=== PATIENT | male | born 1935 | race Caucasian/White ===

== ENCOUNTER → 2017-09-18 07:40 | Outpatient (CLI) | payer MEDICARE ==
[2015-11-01 10:05] VITALS: BMI 32.2
[~2017-09-18 07:40] MED LIST: ACETAMINOPHEN325 MG PO; BAYER CHEWABLE81 MG PO; CELEXA20 MG PO; COLACE100 MG PO; COREG6.25 MG; FENOFIBRATE54 MG PO; FLINTSTONE1 TAB.CHEW PO; GEMFIBROZIL600 MG PO; GLIMEPIRIDE4 MG PO; GLUCOPHAGE1000 MG PO; HYDROCHLOROTHIA25 MG PO; HYTRIN10 MG PO; K-DUR20 MEQ PO; KLOR-CON 1010 MEQ PO; LASIX INJ40 MG/4 ML PO; LASIX40 MG PO; LOPRESSOR25 MG PO; LUNESTA1 MG PO; MULTIPLE VITAMI1 TA1 PO; NORVASC2.5 MG PO; PRAVACHOL40 MG PO; PROAIR HFA8.5 GM INH; PROTONIX40 MG PO; SALINE NASAL SP45 ML NASAL; SENOKOT-S TABLE1 TAB PO; SYMBICORT 16010.2 GM INH; TOPROL XL25 MG PO; XANAX0.25 MG PO; XOPENEX 0.0.63 MG/3 UPD; ZESTRIL40 MG PO
== END | disposition home or self-care (01) ==
LOC: D.RT 07:40
DX: J44.9 Chronic obstructive pulmonary disease, unspecified (principal)

== ENCOUNTER 2019-02-11 06:24 | Outpatient (CLI) | payer MEDICARE ==
[~2019-02-11] VITALS: Ht 170.2 cm; Wt 80.9 kg
[2019-02-11 07:49] VITALS: BP 140/63; Ht 170.2 cm; Wt 80.9 kg
== END 2019-02-11 10:20 | disposition home or self-care (01) ==
LOC: D.OPS 06:24
PROVIDERS: ATTEND Internal Medicine Cardiovascular Disease
DX: Z95.2 Presence of prosthetic heart valve (principal)

== ENCOUNTER → 2019-04-12 08:47 | Outpatient (CLI) | payer MEDICARE ==
[2019-02-11 07:49] VITALS: BMI 27.9
--- NOTE | ~2019-04-12 | EC ---
PATIENT:CHASITY RUBIO JR DATE OF SERVICE: 04/12/19 SEX: M MEDICAL RECORD: [id number] DATE OF : 31 [facility] AGE OF PATIENT: 83 ADMISSION DATE: 04/12/19 REFERRING PHYSICIAN: INTERPRETING PHYSICIAN: JUANITA LOGAN MD ECHOCARDIOGRAM REPORT ECHO CHARGES 4 ECHO COMPLETE Date: 04/12/19 CLINICAL DIAGNOSIS: SOB HX CAD/CABG/HTN/STENTS ECHOCARDIOGRAPHIC MEASUREMENTS (adult normal given) AC root (d.<3.7cm) 3.7 cm LV Septum d (<1.2 cm> 1.3 cm Valve Excursion 1.7 cm LV Septum (systole) 1.4 cm Left Atria (s.<4.0cm> 4.0 cm LVPW d(<1.2cm) 1.4 cm RV (d.<2.3cm) 3.8 cm LVPW (sytole) 1.8 cm LV diastole(<5.6CM) 5.5 cm MV E-F(>70mm/sec) cm LV systole 3.7 cm LVOT Diameter 1.5 cm MV exc.(>10mm) 2.1 cm Est.ejection fraction (50-75%) % DOPPLER: LVIT cm/sec A 89.0 cm/sec E 79.0 cm/sec LA cm/sec RVSP 41 mmHg LVOT 120 cm/sec AOP1/2T m/s Asc. Ao 185 cm/sec RVOT 90 cm/sec RA cm/sec PA 110 cm/sec AV Gradient Peak 13.69mmHg AV Mean 7.40 mmHg AV Area 2.6 cm MV Gradient Peak 3.24 mmHg MV Mean 1.50 mmHg MV Area cm COMMENTS: Spot Machine Operator: Nita ALONSO Dental Professional: 1 Dr. Logan TAPE# PACS Pericardial Effusion N DATE OF SERVICE: 04/12/2019 ECHOCARDIOGRAM DATE OF SERVICE: 04/12/2019 FINDINGS: 1. Left ventricular chamber size is within normal limits. Left ventricular systolic function is normal at 55%. 2. Left atrium is upper limits of normal at 4.0 cm. Right atrium and right ECHOCARDIOGRAM REPORT [id number] CHASITY RUBIO JR ventricular chamber sizes are as well upper limits of normal. 3. Valvular structures have normal structure and motion. 4. Doppler interrogation reveals mild mitral regurgitation, mild tricuspid regurgitation, no other valvular insufficiency or stenosis. Pulmonary systolic pressure is normal estimated at 41 mmHg. 5. No evidence of pericardial effusion or left ventricular thrombus. TRANSINT:[id number] Voice Confirmation ID: [id number] DOCUMENT ID: [id number] JUANITA LOGAN MD CC: [id number] DICTATION DATE: 04/13/19 1111 VANSTONE MACHINE OPERATOR: 04/13/19 1206 DEP CLI 04/12/19 [facility] [address] [place] [id number]
--- NOTE | ~2019-04-12 | ST ---
PATIENT:CHASITY RUBIO JR MEDICAL RECORD: [id number] SEX: M LOCATION:[facility] ORDER #: ADMISSION DATE: 04/12/19 AGE OF PATIENT: 83 REFERRING PHYSICIAN: INTERPRETING PHYSICIAN: JUANITA TIRADO MD DATE OF SERVICE: 04/12/2019 PROCEDURE: Nuclear stress test. INDICATIONS: Angina, shortness of breath, coronary artery disease. The patient was exercised on standard Lexiscan protocol with 29 mCi of sestamibi injected at peak stress, 8 mCi used previously for rest images. FINDINGS: Gated SPECT reveals preserved ejection fraction at 59% with good wall motioning and thickening and brightening throughout all segments. SPECT imaging: Cardiolite was used as myocardial perfusion agent. There are reversible changes inferiorly, apically, and laterally. This includes basal, mid, apical, inferior segments, apex itself, apical lateral, mid lateral, basal lateral segments. The degree of reversibility is mild to moderate. The amount of myocardium involved is large. OVERALL IMPRESSION: This is an abnormal nuclear stress test and high risk due to the large amount of myocardium involved with reversible ischemia inferiorly, apically, and laterally suggestive of hemodynamically significant coronary artery disease, possibly multivessel disease. We will proceed with coronary angiography as a followup study. TRANSINT:[id number] Voice Confirmation ID: [id number] DOCUMENT ID: [id number] JUANITA TIRADO MD CC: NORMA BURTON MD [id number] DICTATION DATE: 04/13/19 1142 RAILWAY EQUIPMENT OPERATOR: 04/14/19 0023 DEP CLI 04/12/19 [place] [id number] [place] [id number]
== END | disposition home or self-care (01) ==
LOC: D.HCCARDIO 08:47
PROVIDERS: ATTEND Internal Medicine Interventional Cardiology
DX: R06.02 Shortness of breath (principal); I25.10 Atherosclerotic heart disease of native coronary artery without angina pectoris

== ENCOUNTER 2019-05-17 07:33 | Outpatient (CLI) | payer MEDICARE ==
[~2019-05-17] VITALS: Ht 170.2 cm; Wt 79.5 kg
--- NOTE | ~2019-05-17 | HEMODYNAMI ---
PATIENT:CHASITY RUBIO JR MEDICAL RECORD: [id number] : 31 LOCATION:D.CAT ADMISSION DATE: 05/17/19 Generatedon:05/17/201910:31 Patient name: CHASITY RUBIO Patient #: [id number] SSN: : 1935 Date of study: 05/17/2019 Page: Of Hemodynamic Procedure Report Patient Data Patient Demographics Procedure consent was obtained First Name: CHASITY Gender: Male Last Name: JOANNE Suffix: [facility] Initial: Manedep : 1935 Patient #: [id number] Age: 83 year(s) Race: Additional ID: [id number] Contact details [address]: [address] [place] [address] rd State: [place] City: [place] Zip code: [address] Past Medical History History of disease Date Diagnosis Comments Valvular heart disease Hypertension Allergies Allergen Reaction Date Comments Reported Penicillins 09/22/2015 Other allergy 09/22/2015 NAPROSYN Other allergy 05/17/2019 CHINTAN KIMBLE Admission Admission Data Admission Date: 05/17/2019 Admission Time: 7:33 Height (in.): 67 BSA: 1.92 (m2) Height (cm.): 170.18 BMI: 27.72 (kg/m2) Weight (lbs.): 177 Weight (kg.): 80.29 Lab Results Lab Result Date: 05/17/2019 Lab Result Time: 0:00 Biochemistry Name Units Result Min Max BUN mg/dl 24 --(----)-* 7 18 Creatinine mg/dl 1.4 --(----)*- 0.6 1.3 CBC Name Units Result Min Max Hematocrit % 40.8 -*(----)-- 42 54 Hemoglobin g/dl 14 --(*---)-- 13.5 17.5 Procedure Procedure Types Cath Procedure Diagnostic Procedure LHC LHC w/Coronaries w/Grafts Sedation Charges Moderate Sedation up to 15 minutes PCI Procedure Coronary Stent Coronary Stent Initial Coronary Stent Additional Procedure Description Procedure Date Procedure Date: 05/17/2019 Procedure Start Time: 10:03 Procedure End Time: 10:29 Procedure Staff Name Function Richard Logan MD Performing Physician Sandie Wick RT Monitor Ortiz Fitzpatrick RT Scrub Jenelle Cesar RN Nurse Joe Avendano RN Conductor Orchestra Procedure Data Cath Procedure Fluoroscopy Diagnostic fluoroscopy Total fluoroscopy Time: 6.4 time: 6.4 min min Diagnostic fluoroscopy Total fluoroscopy dose: dose: 1208 mGy 1208 mGy Contrast Material Contrast Material Type Amount (ml) Isovue 300 0 Entry Location Entry Primary Successful Side Size Upsize Upsize Entry Closure Succes sful Closure Location (Fr) 1 (Fr) 2 (Fr) Remarks Device Remarks Femoral Right 5 Fr 6 Fr Exoseal artery Short Estimated blood loss: 10 ml Diagnostic catheters Device Type Used For End Catheter Placement MULTIPACK JL 4.0 5Fr Procedure catheter MULTIPACK 3DRC 5Fr Procedure catheter DIAGNOSTIC AR2 MOD 5 Fr Procedure catheter ([id number]) Procedure Complications No complications Procedure Medications Medication Administration Route Dosage 0.9% NaCl I.V. 100 ml/hr Oxygen etCO2 Nasal cannula 2 l/min Lidocaine 2% added to field 20 Heparin Flush Bag added to field 2 bags (1000units/500ml NS) Versed I.V. 2 mg Fentanyl I.V. 50 mcg Heparin Bolus I.V. 4000 units Integrilin (Bolus I.V. 7.3 ml 2mg/ml) Plavix P.O. 600 mg Fentanyl I.V. 50 mcg Hemodynamics Rest BSA: 1.92 (m2) O2 Consumption: Estimated: 215.35 (ml/min) O2 Consumption indexed : Estimated:112.16 (ml/min/m) Heart Rate: 66 (bpm) Snapshots Pre Cath Intra NCS Post Cath Vital Signs Time Heart Resp SPO2 etCO2 NIBP (mmHg) Rhythm Pain Sedation Rate (ipm) (%) (mmHg) Status Level (bpm) 9:48:05 68 18 99 32.8 158/73(123) NSR 0 (11) 10(A) , No pain 9:52:25 61 21 98 32.8 138/66(113) NSR 0 (11) 10(A) , No pain 9:56:47 59 13 96 33.6 120/59(90) SB 0 (11) 10(A) , No pain 10:01:09 58 12 96 32.7 113/55(86) SB 0 (11) 10(A) , No pain 10:05:23 57 16 97 32.9 114/59(93) SB 0 (11) 10(A) , No pain 10:09:43 57 11 98 28.3 103/55(70) SB 0 (11) 9(A) , No pain 10:13:57 55 16 98 30.6 114/56(91) SB 0 (11) 9(A) , No pain 10:18:13 54 11 97 30.6 108/51(84) SB 0 (11) 9(A) , No pain 10:22:29 60 11 99 36.8 116/57(88) NSR 0 (11) 10(A) , No pain 10:26:47 64 14 100 23.9 131/62(99) NSR 0 (11) 10(A) , No pain Medications Time Medication Route Dose Verified Delivered Reason Notes Effectiveness by by 9:48:04 0.9% NaCl I.V. 100 Richard Jenelle used for ml/hr Desmond Cesar manager car 9:48:11 Oxygen etCO2 2 Richard Jenelle used for Nasal l/min Desmond Cesar procedure cannula RN 9:48:18 Lidocaine 2% added 20ml Richard Richard for local to vial Desmond Logan MD anesthetic field 9:48:23 Heparin Flush added 2 Richard Richard used for Bag to bags Desmond Logan MD procedure (1000units/500ml field NS) 10:02:55 Versed I.V. 2 mg Richard Jenelle for sedation Desmond Cesar RN 10:03:01 Fentanyl I.V. 50 Richard Jenelle for sedation mcg Desmond Cesar RN 10:08:59 Fentanyl I.V. 50 Richard Jenelle for sedation mcg Desmond Cesar RN 10:17:56 Heparin Bolus I.V. 4000 Richard Jenelle for verif ied units Desmond Cesar anticoagulation with Dr. KAREEM Logan 10:18:17 Integrilin I.V. 7.3 Richard Jenelle for waste d (Bolus 2mg/ml) ml Desmond Cesar antiplatelet 2.7mL RN therapy 10:23:25 Plavix P.O. 600 Richard Marinellisarah Cesar antiplatelet RN therapy Procedure Log Time Note 9:30:01 Signed procedure consent form obtained from patient. 9:30:02 Diagnostic Cath status Urgent 9:30:03 Time tracking: Regular hours (M-F 7:00 - 5:00) 9:30:06 Plan of Care:Hemodynamics will remain stable., Cardiac rhythm will remain stable., Comfort level will be maintained., Respiratory function will remain adequate., Patient/ family verbilizes understanding of procedure., Procedure tolerated without complication., Recovers from procedure without complications.. 9:31:03 Patient Height : 67 inches 9:31:06 Patient Weight : 177 lbs 9:31:27 Patient allergic to Other allergyNAPROSYN, PCN 9:34:15 Lab Result : BUN 24 mg/dl 9:34:15 Lab Result : Hemoglobin 14 g/dl 9:34:15 Lab Result : Creatinine 1.4 mg/dl 9:34:15 Lab Result : Hematocrit 40.8 % 9:34:26 Joe Avendano RN sent for patient. Start room use. 9:39:27 Patient received from Pre/Post Procedure Room to CCL 1 Alert and oriented. Tansferred to table in Supine position. 9:39:28 Warm blankets applied, and sergio hugger turned on for patient comfort. 9:39:29 Correct patient and procedure confirmed by team. 9:39:29 ECG and BP/O2 sat monitors applied to patient. 9:46:44 Vital chart was started 9:46:48 Rhythm: sinus rhythm 9:46:49 Full Disclosure recording started 9:46:59 H&P Date Dictated: 05/11/2019 Within 30 days and on chart., H&P Addendum completed by physician on day of procedure. (MUST COMPLETE FOR ALL OUTPATIENTS). 9:46:59 Pre-procedure instructions explained to patient. 9:47:00 Pre-op teaching completed and patient verbalized understanding. 9:47:01 Family in patients room. 9:47:02 Patient NPO since Midnight. 9:47:04 Is patient on blood thinner?No 9:47:06 Patient diabetic? No. 9:47:09 Previous problem with sedation/anesthesia? No ? 9:47:09 Snore? Yes 9:47:10 Sleep apnea? No 9:47:11 Deviated septum? No 9:47:12 Opens mouth fully? Yes 9:47:12 Sticks out tongue? Yes 9:47:14 Airway obstruction? No ? 9:47:18 Dentures? Yes PARTIAL IN 9:47:22 Patient pain scale 0/10 ?. 9:47:26 Pre procedure: right dorsailis pedis pulse 1+ Palpable, but thready & weak; easily obliterated 9:47:31 IV patent on arrival in left hand with 0.9% NaCl at O. 9:47:34 Lab results completed and on chart. 9:47:37 Right groin area was prepped with chlora-prep and draped in sterile fashion 9:47:38 Alarms reviewed by R. N. 9:47:38 Sharps counted by scrub and verified by R.N. 9:47:41 Use device set Femoral Dx 9:47:42 ACIST Syringe (10386) opened to sterile field. 9:47:42 Bag Decanter (2002S) opened to sterile field. 9:47:43 ACIST Hand Control (36851) opened to sterile field. 9:47:44 ACIST Manifold (19905) opened to sterile field. 9:47:44 Tegaderm 4 x 4 (1626W) opened to sterile field. 9:47:45 Medline Cath Pack ([id number]) opened to sterile field. 9:47:45 DIAGNOSTIC WIRE .035 260cm J wire (117851) opened to sterile field. 9:47:47 DIAGNOSTIC Multipack 5Fr catheter set (UT6232) opened to sterile field. 9:47:48 SHEATH 5FR Otwell (IFS039) opened to sterile field. 9:48:04 0.9% NaCl 100 ml/hr I.V. was administered by Jenelle Cesar RN; used for procedure; 9:48:11 Oxygen 2 l/min etCO2 Nasal cannula was administered by Jenelle Cesar RN; used for procedure; 9:48:18 Lidocaine 2% 20ml vial added to field was administered by Richard Logan MD; for local anesthetic; 9:48:23 Heparin Flush Bag (1000units/500ml NS) 2 bags added to field was administered by Richard Logan MD; used for procedure; 9:49:12 Baseline sample Acquired. 9:58:38 Zero performed for pressure channel P1 9:59:05 Zero performed for pressure channel P1 10:02:31 --------ALL STOP TIME OUT------ 10:02:32 Final Timeout: patient, procedure, and site verified with staff and physician. All members of the team are in agreement. 10:02:33 Right groin site verified by team. 10:02:35 Maximum allowable Isovue 300 dose 300ml. Physician notified. (300ml for normal creatinines. For patients with creatinine of 1.7 or higher multiply weight(kg) x 5 divided by creatinine.) 10:02:39 Fire Safety Assessment: A--An alcohol-based skin anteseptic being used preoperatively., C--Open oxygen or nitrous oxide is being used., D--An ESU, laser, or fiber-optic light is being used. 10:02:41 Physical assessment completed. ASA score P 2 - A patient with mild systemic disease as per Richard Logan MD. 10:02:44 Sedation plan: IV Moderate Sedation Medication:Versed, Fentanyl 10:02:55 Versed 2 mg I.V. was administered by Jenelle Cesar RN; for sedation; 10:03:01 Fentanyl 50 mcg I.V. was administered by Jenelle Cesar RN; for sedation; 10:03:06 Procedure started. 10:03:30 Local anesthetic to right femoral artery with Lidocaine 2% by Richard Logan MD.INITIAL ACCESS ONLY 10:05:10 A 5 Fr sheath was inserted into the Right Femoral artery 10:07:53 LV gram done using ANDREA 10:08:01 Injector settings: Ml/sec: 10, Volume: 20, 10:08:14 EF : 50 % 10:08:16 Catheter removed. 10:08:48 A MULTIPACK JL 4.0 5Fr catheter was advanced over the wire and used for Procedure. 10:08:59 Fentanyl 50 mcg I.V. was administered by Jenelle Cesar RN; for sedation; 10:09:32 LCA angiography performed. 10:09:33 Catheter removed. 10:09:41 A MULTIPACK 3DRC 5Fr catheter was advanced over the wire and used for Procedure. 10:10:36 SVG to LAD angiography performed. 10:11:25 RCA angiography performed. 10:12:10 Catheter removed. 10:12:53 A DIAGNOSTIC AR2 MOD 5 Fr catheter ([id number]) was advanced over the wire and used for Procedure. 10:12:58 SVG to OM angiography performed. 10:13:57 SVG to RCA angiography performed. 10:14:06 Catheter removed. 10:14:29 SHEATH 6FR Otwell (AVN474) opened to sterile field. 10:14:30 INFLATOR Merit BasixCompak (GF9117) opened to sterile field. 10:14:30 CHOICE PT Extra Support 182cm wire ([id number]) opened to sterile field. 10:14:49 Sheath upsized to a 6 Fr Short. 10:15:05 GUIDE 6FR AR 2.0 catheter (GE5LG12) opened to sterile field. 10:16:04 6 Fr AR 2 guide catheter was inserted over the wire 10:17:56 Heparin Bolus 4000 units I.V. was administered by Jenelle Cesar RN; for anticoagulation; verified with Dr. Logan 10:18:17 Integrilin (Bolus 2mg/ml) 7.3 ml I.V. was administered by Jenelle Cesar RN; for antiplatelet therapy; wasted 2.7mL 10:18:39 CHOICE ES 182 wire advanced. 10:18:40 Wire advanced across lesion. 10:20:17 Place stent Inflation Number: 1 A MARK RX 3.0 x 12 stent ([id number]) was prepped and advanced across the 1st RPL 90. The stent was deployed at 15 KATHY for 0:00 (min:sec) 0. 10:20:23 Stent catheter was removed intact over wire. 10:21:43 Place stent Inflation Number: 1 A MARK RX 3.0 x 15 stent ([id number]) was prepped and advanced across the Mid RCA 90. The stent was deployed at 15 KATHY for 0:00 (min:sec) 0. 10:22:05 Stent catheter was removed intact over wire. 10:23:25 Plavix 600 mg P.O. was administered by Jenelle Cesar RN; for antiplatelet therapy; 10:23:44 Place stent Inflation Number: 2 A MARK RX 2.5 x 15 stent ([id number]) was prepped and advanced across the Mid RCA 90. The stent was deployed at 13 KATHY for 0:00 (min:sec) 0. 10:24:03 Stent catheter was removed intact over wire. 10:24:03 Wire removed. 10:24:04 Guide catheter removed. 10:24:06 EXOSEAL 6Fr (EX600) opened to sterile field. 10::42 Sheath removed intact; hemostasis achieved with Exoseal to the Right Femoral artery. 10::45 Procedure ended.(Physican Out) 10:25:24 Fluoroscopy time 06.40 minutes. 10::31 Fluoroscopy dose: 1208 mGy 10:: Flurop Dose total: 1208 10::36 Contrast amount:Isovue 300 0ml. 10::38 Sharps counted by scrub and verified by R.N. 10::42 Post-op/insertion site Right Femoral artery dressed using a 4 x 4 and Tegaderm. 10::45 Post-procedure physical assessment completed. ASA score P 2 - A patient with mild systemic disease as per Richard Logan MD. 10:25:47 Post procedure rhythm: sinus rhythm 10::49 Estimated blood loss: 10 ml 10::51 Post procedure instruction explained to patient.Patient verbalizes understanding. 10::51 Patient needs reinforcement of post procedure teaching. 10:27:02 Procedure type changed to Cath procedure, Diagnostic procedure, LHC, LHC w/Coronaries w/Grafts, Sedation Charges, Moderate Sedation up to 15 minutes, PCI procedure, Coronary Stent, Coronary Stent Initial, Coronary Stent Additional 10::31 Procedure and supply charges have been captured, reviewed, submitted and are correct. 10:27:35 Procedure Complication : No complications 10:29:04 Vital chart was stopped 10::04 See physician's report for complete and final results. 10:29:06 Report given to Pre/Post Procedure Room. 10:29:09 Patient transfered to Pre/Post Procedure Room with Bed. 10:29:12 Procedure ended. 10:29:12 Full Disclosure recording stopped 10::15 End room use (Document Last) Intervention Summary Intervention Notes Time ActionType Lesion and Equipment Used Action# Pressure Duration Attributes 10:20:17 Place stent 1st RPL MARK RX 3.0 x 1 15 00:00 12 stent ([id number]) 10:21:43 Place stent Mid RCA MARK RX 3.0 x 1 15 00:00 15 stent ([id number]) 10:23:44 Place stent Mid RCA MARK RX 2.5 x 2 13 00:00 15 stent ([id number]) Device Usage Item Name Manufacture Quantity Catalog Number Hospital Part Current M inimal Lot# / Charge Number Stock Stock Serial# Code ACIST Syringe Acist 1 68439 350178 931413 091993 2 0 (35730) Medical Systems Inc Bag Decanter Microtek 1 2001S 822129 01862 622025 5 () Medical Inc. ACIST Hand Acist 1 71499 800616 974598 599318 5 Control Medical (67228) Systems Inc ACIST Manifold Acist 1 04491 105434 225631 172985 5 (96897) Medical Systems Inc Tegaderm 4 x 4 3M 1 1626W 055329 160078 564741 5 (1626W) Medline Cath Medline 1 [id number] 029225 04524 757713 5 Pack ([id number]) DIAGNOSTIC St Renzo 1 938716 831583 192308 320234 3 0 WIRE .035 260cm J wire (471587) DIAGNOSTIC Cardinal 1 UF0815 141785 71473 731104 3 0 Multipack 5Fr Health catheter set (WZ8764) SHEATH 5FR Terumo 1 LTI151 516125 643001 678993 5 Otwell (QTH336) MULTIPACK JL Cardinal 1 675572 5 4.0 5Fr Health catheter MULTIPACK 3DRC Cardinal 1 858628 5 5Fr catheter Health DIAGNOSTIC AR2 Cardinal 1 [id number] 867860 309106 062897 2 0 MOD 5 Fr Health catheter ([id number]) SHEATH 6FR Terumo 1 MCJ425 436004 262819 747210 4 0 Otwell (SGX223) INFLATOR Merit Merit 1 UA4071 885705 533183 985557 1 5 better. Medical (LW6833) CHOICE PT Roslyn 1 [id number] 668593 554318 838643 5 Extra Support Scientific 182cm wire ([id number]) GUIDE 6FR AR Medtronic 1 AT8PJ45 943322 72831 733785 1 2.0 catheter ([id number]) MARK RX 3.0 x Medtronic 1 [id number] 957741 6334287 397385 5 [id number] 12 stent ([id number]) MARK RX 3.0 x Medtronic 1 [id number] 103410 8131432 129777 5 [id number] 15 stent ([id number]) MARK RX 2.5 x Medtronic 1 [id number] 919208 7131139 341671 5 [id number] 15 stent ([id number]) EXOSEAL 6Fr Cardinal 1 EX600 070444 386437 119739 1 0 (EX600) Health Signature Audit Dexter Stage Time Signature Unsigned Intra-Procedure 05/17/2019 Sandie Wick 10:31:19 AM RT(R) Signatures Monitor : Sandie Wick Signature : RT Date : Time : [address] [address]
[2019-05-17] MEDS ORDERED: TOPROL XL25 MG PO (07:51)
[2019-05-17] MEDS ORDERED: ZYLOPRIM300 MG PO (07:55)
[2019-05-17 08:05] VITALS: BP 156/70; Ht 170.2 cm; Wt 79.5 kg
[2019-05-17 08:22] LABS: BASOPHILS 0.3 % (0-2); EOSINOPHILS 7.3 % (0-7); HEMATOCRIT 40.8 % (42.0-54.0); IMMATURE GRANULOCYTES 0.4 % (0-5); MCH 30.6 pg (26.0-34.0); MCHC 34.3 g/dL (31.0-37.0); MCV 89.1 fL (80.0-100.0); MEAN PLATELET VOLUME 10.6 fL (7.4-10.4); MONOCYTES 12.5 % (2-11); NEUTROPHILS 60.5 % (40-80); RBC 4.58 10x6/uL (4.20-6.10); WBC 7.3 10x3/uL (4.8-10.8)
[2019-05-17 08:37] LABS: PLATELET COUNT 219 10x3/uL (130-400)
[2019-05-17 09:23] LABS: ANION GAP 12.2 mmol/L (8-16); CALCIUM 9.7 mg/dL (8.5-10.1); CREATININE - SERUM 1.4 mg/dL (0.6-1.3); POTASSIUM - SERUM 4.2 mmol/L (3.5-5.1)
--- NOTE | 2019-05-17 10:52 | NUR ---
DR TIRADO HAS ROUNDED ON PT. PT DENIES ANY C/O. IS DROWSY. DRESSING CDI TO RIGHT GROIN, PEDAL PULSES PALPABLE, HOB IS FLAT. RESP WITH EASE ON O2 AT 2LPM VIA NC. AT BEDSIDE.
[2019-05-17] MEDS ORDERED: PLAVIX75 MG PO (10:56)
--- NOTE | 2019-05-17 11:08 | NUR ---
PT DENIES ANY C/O OR NEEDS AT THIS TIME, NSR, RATE 60. BP IS 125/58, PT DENIES ANY C/O CHEST PAIN. DRESSING CDI RIGHT GROIN, PEDAL PULSES 2+. HOB IS FLAT, NO FAMILY AT BEDSIDE, CALL LIGHT IN REACH.
--- NOTE | 2019-05-17 11:30 | NUR ---
SLEEPING INTERMITTENTLY, AWAKENS EASILY. DRESSING CDI TO RIGHT GROIN, PEDAL PULSES PALPABLE. VSS, RESP WITH EASE. HOB IS FLAT.
--- NOTE | 2019-05-17 12:00 | NUR ---
PT DENIES ANY C/O. SINSU RHYTHM AT 62, BP IS 121/57. RESP WITH EASE ON O2 AT 2LPM, PEDAL PULSES PALPABLE. HOB IS FLAT, CALL LIGHT IN REACH, PT VOIDED 150 CC CLEAR YELLOW URINE. AT BEDSIDE.
--- NOTE | 2019-05-17 12:50 | NUR ---
PT DENIES NEEDS AT THIS TIME. VSS, DRESSING CDI TO RIGHT GROIN, PEDAL PULSES PALPABLE. HOB IS FLAT, AT BEDSIDE.
--- NOTE | 2019-05-17 13:33 | NUR ---
HOB ELEVATED 30 DEGREES, SANDWICH AND PO FLUIDS AT BEDSIDE. DRESSING CDI, PEDAL PULSES PALPABLE.
--- NOTE | 2019-05-17 13:50 | NUR ---
DRESSING CDI, PEDAL PULSES PALPABLE. HOB FULLY ELEVATED. VSS.
--- NOTE | 2019-05-17 15:00 | NUR ---
1620 IV DC'D WITH CATH INTACT AND PT IS DRESSING FOR DC WITH ASSIST. DC INSTRUCTIONS REVIEWED WITH PT AND WHO VERBALIZE UNDERSTANDING. [facility] PRESCRIPTION CALLED IN TO [place] ON [address] PER PT REQUEST. PT VOIDED ADDITIONAL 400 CC CLEAR YELLOW URINE TO URINAL. 1640 PT DRESSED FOR DC TO HOME. DENIES ANY C/O. DRESSING REMAINS CDI. PT ESCORTED TO PRIVATE AUTO VIA WC BY NURSE WITH DRIVING HIM HOME.
--- NOTE | 2019-05-19 10:00 | OP ---
PATIENT NAME: CHASITY RUBIO JR MEDICAL RECORD: [id number] :31 LOCATION:D.CAT ADMISSION DATE: SURGEON: JUANITA TIRADO MD DATE OF OPERATION: 05/17/2019 PROCEDURES: 1. PTCA stent, seneca-cayuga RCA. 2. PTCA stent, seneca-cayuga PLV. 3. Left heart catheterization. 4. Selective coronary angiography. 5. Vein graft angiography. 6. DE LEON angiography. 7. Left ventriculogram. INDICATION: Angina, abnormal nuclear stress test, inferior and inferolateral ischemia. PROCEDURE IN DETAIL: After informed consent was obtained and after detailed description of risks, benefits as well as alternative therapies, the patient elected to proceed with angiogram and angioplasty. The right femoral area was prepped and draped in normal sterile fashion. Right femoral artery was cannulated via modified Seldinger technique with placement of 6-Indonesian sheath. All catheters exchanged through this sheath. FINDINGS: Left ventriculogram was performed in a standard 30-degree ANDREA view, reveals good cardiac wall motion throughout all segments. Overall ejection fraction 50%. No significant gradient across the prosthetic tissue valve. SELECTIVE CORONARY ANGIOGRAPHY: 1. Left main is with no significant angiographic disease. 2. Left anterior descending has high-grade stenosis proximally. 3. DE LEON to the LAD is widely patent. Distal LAD is widely patent. 4. The left circumflex has a high-grade lesion of the first obtuse marginal at 90%. 5. Vein graft in a skipped fashion to LAD diagonal and first obtuse marginal is widely patent. Distal vessels are diffusely diseased, but widely patent. 6. The right coronary has 80% to 90% stenosis in the mid vessel followed by an 80% to 90% stenosis at the ostium of the PLV and a 95% stenosis of the PDA ostium. 7. Vein graft to the PDA patent; however, this does not backfill the PLV territory. The ischemia is noted inferiorly and inferolaterally correlates with the mid RCA and PLV territory. Hence intervention was undertaken. PTCA STENT OF THE RCA AND PLV: The RCA was addressed with a 3.5 x 15 and 2.5 x 15 Henefer stent. The PLV ostium was addressed with a 3.0 x 12 mm Henefer stent. Result was 0% residual stenosis. OVERALL IMPRESSION: Successful PTCA stent of the RCA going from 90% initial stenosis to 0% residual. TRANSINT:[id number] Voice Confirmation ID: [id number] DOCUMENT ID: [id number] OPERATIVE REPORT [id number] CHASITY RUBIO JR, JEFFREY MD at 1000 CC: [id number] DICTATION DATE: 05/17/19 1032 BOX LIDDER: 05/17/19 1329 DEP CLI 05/17/19 [place] [id number]
== END 2019-05-17 14:40 | disposition home or self-care (01) ==
LOC: D.CATH 07:33
PROVIDERS: ATTEND Internal Medicine Interventional Cardiology
DX: I25.119 Atherosclerotic heart disease of native coronary artery with unspecified angina pectoris (principal); R94.30 Abnormal result of cardiovascular function study, unspecified; Z95.1 Presence of aortocoronary bypass graft; Z01.812 Encounter for preprocedural laboratory examination
CPT/HCPCS: 93459; C9600; C9601

== ENCOUNTER 2019-09-28 13:27 | Emergency (ER) | payer MEDICARE ==
[~2019-09-28] VITALS: Ht 170.2 cm; Wt 79.5 kg
[~2019-09-28 13:27] MED LIST changes: +PLAVIX75 MG PO; +ZYLOPRIM300 MG PO
[2019-09-28 13:32] VITALS: Ht 170.2 cm; Wt 79.5 kg
[2019-09-28 14:04] LABS: CALC OSMOLALITY 285 mosm/kg (275-300); CALCIUM 9.6 mg/dL (8.5-10.1); CHLORIDE - SERUM 104 mmol/L (98-107); CREATININE - SERUM 1.7 mg/dL (0.6-1.3); GLUCOSE 141 mg/dL (74-106); POTASSIUM - SERUM 3.9 mmol/L (3.5-5.1); SODIUM 140 mmol/L (136-145); UREA NITROGEN 27 mg/dL (7-18); eGFR NON AFRICAN AMERICAN 41 mL/min (90-120)
[2019-09-28 14:10] LABS: APTT 26.9 SECONDS (22.8-39.4); INR 1.12 (0.85-1.17); PROTIME 13.9 SECONDS (11.6-15.0)
[2019-09-28 14:23] LABS: ALBUMIN 4.3 g/dL (3.4-5.0); ALKALINE PHOSPHATASE 84 U/L (46-116); ALT (SGPT) 27 U/L (10-68); BILIRUBIN - TOTAL 0.55 mg/dL (0.2-1.3); CKMB 1.1 U/L (0.0-3.6); CREATINE KINASE 125 UL (21-232); PROTEIN - SERUM 8.1 g/dL (6.4-8.2); THYROID STIMULATING HORMONE 3.56 uIU/mL (0.36-3.74); TROPONIN-I < 0.017 ng/mL (0.000-0.060)
[2019-09-28 14:32] LABS: BASOPHILS 0.1 % (0-2); EOSINOPHILS 1.8 % (0-7); HEMATOCRIT 41.1 % (42.0-54.0); HEMOGLOBIN 13.7 g/dL (13.5-17.5); IMMATURE GRANULOCYTES 0.3 % (0-5); LYMPHOCYTES 11.5 % (15-50); MCH 30.9 pg (26.0-34.0); MCHC 33.3 g/dL (31.0-37.0); MCV 92.8 fL (80.0-100.0); MEAN PLATELET VOLUME 10.1 fL (7.4-10.4); MONOCYTES 9.2 % (2-11); NEUTROPHILS 77.1 % (40-80); PLATELET COUNT 194 10x3/uL (130-400); RBC 4.43 10x6/uL (4.20-6.10); RDW 14.8 % (11.5-14.5); WBC 7.8 10x3/uL (4.8-10.8)
[2019-09-28] MEDS ORDERED: MECLIZINE HCL25 MG PO (16:21)
[2019-09-28] MEDS ORDERED: MEDROL DOSE PACK4 MG PO (16:21)
[2019-09-28 17:28] VITALS: BP 138/70
== END 2019-09-28 17:29 | disposition home or self-care (01) ==
LOC: D.ER 13:27
PROVIDERS: Emergency Medicine
DX: R42 Dizziness and giddiness (principal); E86.0 Dehydration; I10 Essential (primary) hypertension; E78.5 Hyperlipidemia, unspecified; F32.9 Major depressive disorder, single episode, unspecified; K21.9 Gastro-esophageal reflux disease without esophagitis

== ENCOUNTER 2019-10-29 08:46 | Outpatient (CLI) | payer MEDICARE ==
[~2019-10-29] VITALS: Ht 170.2 cm; Wt 77.7 kg
--- NOTE | ~2019-10-29 | OP ---
PATIENT NAME: CHASITY RUBIO JR MEDICAL RECORD: [id number] :31 LOCATION:D.CAT ADMISSION DATE: SURGEON: JUANITA TIRADO MD DATE OF OPERATION: 10/29/2019 DATE OF SERVICE: 10/29/2019 PROCEDURES: 1. PTCA stent first obtuse marginal through patent saphenous vein graft. 2. Left heart catheterization. 3. Selective coronary angiography. 4. Vein graft angiography. 5. DE LEON angiography. INDICATION: Unstable angina and coronary artery disease. PROCEDURE IN DETAIL: After informed consent was obtained and after a detailed description of the risks, benefits as well as alternative therapies, the patient elected to proceed with angiogram and angioplasty. The right femoral area was prepped and draped in normal sterile fashion. Right femoral artery was cannulated via modified Seldinger technique with placement of 6-Croatian sheath. All catheters exchanged through this sheath. FINDINGS: Left ventriculogram was not performed secondary to inability to cross the prosthetic valve. SELECTIVE CORONARY ANGIOGRAPHY: 1. Left main is with no significant angiographic disease. 2. Left anterior descending is totally occluded in the mid vessel. 3. DE LEON to the LAD is widely patent. Distal LAD is widely patent. 4. The left circumflex is patent; however, the obtuse marginals were totally occluded. 5. Vein graft in a skipped fashion to OM1 and OM2 is patent; however OM1 has 90% stenosis after the vein graft. 6. The right coronary has a patent vein graft to the distal RCA. The distal RCA is widely patent, previously placed is widely patent. PTCA STENT OF THE FIRST OBTUSE MARGINAL THROUGH THE PATENT VEIN GRAFT: The stent used was a 2.0 x 12 mm [place]. Result was 0% residual stenosis. OVERALL IMPRESSION: Successful percutaneous transluminal coronary angioplasty stent of the first obtuse marginal through the patent vein graft going from 90% initial stenosis to 0% residual. TRANSINT:[id number] Voice Confirmation ID: [id number] DOCUMENT ID: [id number] JUANITA TIRADO MD CC: [id number] DICTATION DATE: 10/29/19 1158 [employer]Y PLAN SALES DIRECTOR: 10/29/19 1553 [facility] [address] [place] [address]
--- NOTE | ~2019-10-29 | EC ---
PATIENT:CHASITY RUBIO JR DATE OF SERVICE: 10/29/19 SEX: M MEDICAL RECORD: [id number] DATE OF : 31 LOCATION:D.CAT AGE OF PATIENT: 84 ADMISSION DATE: 10/29/19 REFERRING PHYSICIAN: INTERPRETING PHYSICIAN: JUANITA LOGAN MD ECHOCARDIOGRAM REPORT ECHO CHARGES 4 ECHO COMPLETE Date: 10/29/19 CLINICAL DIAGNOSIS: POSSIBLE ECHOCARDIOGRAPHIC MEASUREMENTS (adult normal given) AC root (d.<3.7cm) 2.5 cm LV Septum d (<1.2 cm> 1.5 cm Valve Excursion 1.6 cm LV Septum (systole) 1.6 cm Left Atria (s.<4.0cm> 4.2 cm LVPW d(<1.2cm) 0.7 cm RV (d.<2.3cm) 3.1 cm LVPW (sytole) 1.2 cm LV diastole(<5.6CM) 4.8 cm MV E-F(>70mm/sec) cm LV systole 3.5 cm LVOT Diameter 1.6 cm MV exc.(>10mm) cm Est.ejection fraction (50-75%) % DOPPLER: LVIT cm/sec A 40 cm/sec E 73 cm/sec LA cm/sec RVSP 41.0 mmHg LVOT 101 cm/sec AOP1/2T m/s Asc. Ao 151 cm/sec RVOT 54 cm/sec RA cm/sec PA 84 cm/sec AV Gradient Peak 9.1 mmHg AV Mean 5.4 mmHg AV Area 1.4 cm MV Gradient Peak 2.2 mmHg MV Mean 0.9 mmHg MV Area cm COMMENTS: Chief Inspector: Pineda JOHNSON Compressor Assembler: Carlos Logan TAPE# PACS Pericardial Effusion N DATE OF SERVICE: 10/29/2019 Echocardiogram FINDINGS: 1. Left ventricular chamber size is within normal limits. Left ventricular systolic function is lower limits of normal at 45% to 50%. 2. Left atrium, right atrium, and right ventricle chamber sizes are within normal limits. 3. 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 The remaining valvular structures have normal structure and motion. 4. Doppler interrogation else mendez reveals only mild tricuspid regurgitation, no other valvular insufficiency or stenosis. 5. No evidence of pericardial effusion or left ventricular thrombus. TRANSINT:[id number] Voice Confirmation ID: [id number] DOCUMENT ID: [id number] JUANITA LOGAN MD CC: [id number] DICTATION DATE: 10/29/191435 AIRPORT OPERATIONS MANAGER: 10/29/191958 [facility] CLI 10/29/19 [place] [id number] [place] [id number]
--- NOTE | ~2019-10-29 | HEMODYNAMI ---
PATIENT:CHASITY RUBIO JR MEDICAL RECORD: [id number] : 31 LOCATION:D.CAT ADMISSION DATE: 10/29/19 Generatedon:10/29/201911:58 Patient name: CHASITY RUBIO Patient #: [id number] SSN: : 1935 Date of study: 10/29/2019 Page: Of Hemodynamic Procedure Report Patient Data Patient Demographics Procedure consent was obtained First Name: CHASITY Gender: Male Last Name: JOANNE Suffix: [facility] Initial: Mandeep : 1935 Patient #: [id number] Age: 84 year(s) Race: Additional ID: [id number] Contact details Address: [address] [place] [address] rd State: [place] City: [place] Zip code: [address] Past Medical History History of disease Date Diagnosis Comments Valvular heart disease Hypertension Allergies Allergen Reaction Date Comments Reported Penicillins 09/22/2015 Other allergy 09/22/2015 NAPROSYN Other allergy 05/17/2019 CHINTAN KIMBLE Admission Admission Data Admission Date: 10/29/2019 Admission Time: 8:46 Height (in.): 67 BSA: 1.89 (m2) Height (cm.): 170.18 BMI: 26.83 (kg/m2) Weight (lbs.): 171.3 Weight (kg.): 77.7 Lab Results Lab Result Date: 10/29/2019 Lab Result Time: 0:00 Biochemistry Name Units Result Min Max BUN mg/dl 21 --(----)-* 7 18 Creatinine mg/dl 1.3 --(---*)-- 0.6 1.3 eGFR ml/min 55 *-(----)-- 90 120 NONAFRICAN CBC Name Units Result Min Max Hemoglobin g/dl 12.5 *-(----)-- 13.5 17.5 Procedure Procedure Types Cath Procedure Diagnostic Procedure LHC Coronaries w/Grafts PCI Procedure AMI/SVG/OPTICAL LABORATORY MECHANIC PTCA or Stent SVG-BMS/ANNA Initial Hemochron ACT Test Procedure Description Procedure Date Procedure Date: 10/29/2019 Procedure Start Time: 11:34 Procedure End Time: 11:55 Procedure Staff Name Function Richard Logan MD Performing Physician Musa Mcmullen RT Monitor Joe Avendano RN Nurse Basilia Lnyn RT Scrub Procedure Data Cath Procedure Fluoroscopy Diagnostic fluoroscopy Total fluoroscopy Time: 5.6 time: 5.6 min min Diagnostic fluoroscopy Total fluoroscopy dose: 793 dose: 793 mGy mGy Contrast Material Contrast Material Type Amount (ml) Isovue 370 97 Entry Location Entry Primary Successful Side Size Upsize Upsize Entry Closure Succes sful Closure Location (Fr) 1 (Fr) 2 (Fr) Remarks Device Remarks Femoral Right 5 Fr 6 Fr Exoseal artery Short Estimated blood loss: 10 ml Diagnostic catheters Device Type Used For End Catheter Placement MULTIPACK Pigtail 5 Fr Procedure catheter MULTIPACK JL 4.0 5Fr Procedure catheter MULTIPACK 3DRC 5Fr Procedure catheter DIAGNOSTIC AR2 MOD 5 Fr Procedure catheter ([id number]) Procedure Complications No complications Procedure Medications Medication Administration Route Dosage Oxygen etCO2 Nasal cannula 2 l/min Lidocaine 2% added to field 20 Heparin Flush Bag added to field 2 bags (1000units/500ml NS) 0.9% NaCl I.V. 100 ml/hr Versed I.V. 1 mg Fentanyl I.V. 50 mcg Versed I.V. 1 mg Fentanyl I.V. 50 mcg Heparin Bolus I.V. 4000 units Hemodynamics Rest BSA: 1.89 (m2) HGB: 12.5 (g/dl) O2 Consumption: Estimated: 214.44 (ml/min) O2 Co nsumption indexed: Estimated:113.46 (ml/min/m) Heart Rate: 70 (bpm) Snapshots Pre Cath Intra NCS Post Cath Vital Signs Time Heart Resp SPO2 etCO2 NIBP Rhythm Pain Sedation Rate (ipm) (%) (mmHg) (mmHg) Status Level (bpm) 11:12:41 70 24 90 0 131/66(95) NSR 0 (11) 10(A) , No pain 11:16:59 69 25 95 18.8 129/58(89) NSR 0 (11) 10(A) , No pain 11:21:15 64 17 93 18.1 115/61(80) NSR 0 (11) 10(A) , No pain 11:25:29 63 18 94 14.3 110/53(81) NSR 0 (11) 10(A) , No pain 11:29:39 62 17 94 0 111/58(81) NSR 0 (11) 10(A) , No pain 11:33:49 63 20 93 0 109/59(82) NSR 0 (11) 9(A) , No pain 11:38:54 61 29 94 0 108/56(82) NSR 0 (11) 9(A) , No pain 11:43:04 59 15 95 1.5 105/55(82) NSR 0 (11) 9(A) , No pain 11:47:14 58 14 95 0 108/50(85) NSR 0 (11) 9(A) , No pain 11:51:26 59 15 93 0 97/55(79) NSR 0 (11) 10(A) , No pain 11:55:32 61 18 96 9.7 114/54(86) NSR 0 (11) 10(A) , No pain Medications Time Medication Route Dose Verified Delivered Reason Notes Effectiveness by by 11:20:32 Oxygen etCO2 2 Richard Joe used for Nasal l/min Desmond Avendano RN procedure cannula 11:20:39 Lidocaine 2% added 20ml Richard Richard for local to vial Desmond Logan MD anesthetic field 11:20:45 Heparin Flush added 2 Richard Richard used for Bag to bags Desmond Logan MD procedure (1000units/500ml field NS) 11:20:54 0.9% NaCl I.V. 100 Richard Diaz Per physician ml/hr Desmond Avendano RN 11:29:03 Fentanyl I.V. 50 Richard Diaz for sedation mcg eDsmond Avendano RN 11:29:58 Versed I.V. 1 mg Richard Diaz for sedation Desmond Avendano RN 11:36:26 Versed I.V. 1 mg Richard Diaz for sedation Desmond Avendano RN 11:36:29 Fentanyl I.V. 50 Richard Diaz for sedation mcg Desmond Avendano RN 11:44:57 Heparin Bolus I.V. 4000 Richard Diaz for verif ied units Desmond Avendano RN anticoagulation with dr logan Procedure Log Time Note 10:40:09 Joe Avendano RN sent for patient. Start room use. 10:48:10 Time tracking: Regular hours (M-F 7:00 - 5:00) 10:48:14 Plan of Care:Hemodynamics will remain stable., Cardiac rhythm will remain stable., Comfort level will be maintained., Respiratory function will remain adequate., Patient/ family verbilizes understanding of procedure., Procedure tolerated without complication., Recovers from procedure without complications.. 10:53:52 Risk of Mortality: 0.8 10:53:54 Risk of blood transfusion: 0.1 10:53:56 Risk of MAGED: 3 10:54:02 Lab results completed and on chart. 10:54:08 Patient Height : 67 inches 10:54:14 Patient Weight : 171.3 lbs 11:03:31 Patient received from Pre/Post Procedure Room to CCL 2 Alert and oriented. Tansferred to table in Supine position. 11:03:33 Signed procedure consent form obtained from patient. 11:03:34 Warm blankets applied, and sergio hugger turned on for patient comfort. 11:03:34 Correct patient and procedure confirmed by team. 11:03:35 ECG and BP/O2 sat monitors applied to patient. 11:11:29 Vital chart was started 11:11:31 Baseline sample Acquired. 11:11:36 Rhythm: sinus rhythm 11:11:37 Full Disclosure recording started 11:12:03 H&P Date Dictated: 10/27/2019 Within 30 days and on chart., H&P Addendum completed by physician on day of procedure. (MUST COMPLETE FOR ALL OUTPATIENTS). 11:12:04 Pre-procedure instructions explained to patient. 11:12:05 Pre-op teaching completed and patient verbalized understanding. 11:12:07 Family in waiting room. 11:12:08 Patient NPO since Midnight. 11:12:10 Is the patient allergic to Iodine/contrast media? No. 11:12:12 Is patient on blood thinner?Yes 11:12:21 ACC The patient was administered the following blood thiners within the last 24 hours: ACCPlavix 11:13:38 Patient diabetic? No. 11:13:43 Previous problem with sedation/anesthesia? No ? 11:13:45 Snore? Yes 11:13:46 Sleep apnea? No 11:13:48 Deviated septum? No 11:13:48 Opens mouth fully? Yes 11:13:49 Sticks out tongue? Yes 11:13:51 Airway obstruction? No ? 11:13:53 Dentures? No ? 11:13:57 Pre procedure: right dorsailis pedis pulse 1+ Palpable, but thready & weak; easily obliterated 11:13:58 Patient pain scale 0/10 ?. 11:14:02 IV patent on arrival in left forearm with 0.9% NaCl at [facility]. 11:14:07 Right groin area was prepped with chlora-prep and draped in sterile fashion 11:14:08 Alarms reviewed by R. N. 11:14:08 Sharps counted by scrub and verified by R.N. 11:14:11 Use device set Femoral Dx 11:14:13 Tegaderm 4 x 4 ([id number]) opened to sterile field. 11:14:14 ACIST Manifold (98773) opened to sterile field. 11:14:14 ACIST Hand Control (57790) opened to sterile field. 11:14:15 ACIST Syringe (66952) opened to sterile field. 11:14:16 Bag Decanter (2002S) opened to sterile field. 11:14:16 Medline Cath Pack ([id number]) opened to sterile field. 11:14:18 DIAGNOSTIC Multipack 5Fr catheter set (DU3199) opened to sterile field. 11:14:19 SHEATH 5FR [place] (KCX799) opened to sterile field. 11:14:19 EMERALD Guide Wire (624-551) opened to sterile field. 11:16:05 Lab Result : BUN 21 mg/dl 11:16:05 Lab Result : eGFR NONAFRICAN 55 ml/min 11:16:05 Lab Result : Hemoglobin 12.5 g/dl 11:16:05 Lab Result : Creatinine 1.3 mg/dl 11:20:10 Procedure type changed to Cath procedure, Diagnostic procedure, LHC, Coronaries w/Grafts, PCI procedure, AMI/SVG/OPTICAL LABORATORY MECHANIC PTCA or Stent, SVG-BMS/ANNA Initial, Hemochron ACT Test 11:20:32 Oxygen 2 l/min etCO2 Nasal cannula was administered by Joe Avendano RN; used for procedure; Verbal order read back and verified. 11:20:39 Lidocaine 2% 20ml vial added to field was administered by Richard Logan MD; for local anesthetic; Verbal order read back and verified. 11:20:45 Heparin Flush Bag (1000units/500ml NS) 2 bags added to field was administered by Richard Logan MD; used for procedure; Verbal order read back and verified. 11:20:54 0.9% NaCl 100 ml/hr I.V. was administered by Joe Avendano RN; Per physician; Verbal order read back and verified. 11:22:56 ACC Patient presents with Stable Angina CCS Anginal Class 2--Slight limitation of ordinary activity. 11:24:50 ACCPatient has been prescribed/administered the following anti-anginal medication within the last 2 weeks: Beta Sunita, Calcium Channel Blockers 11::56 3a) 45-59 Moderately reduced kidney function. 11:27:14 Maximum allowable contrast dose (3.7 X eGFR X 0.75)153 ml. 11:27:25 Physician arrived 11::26 --------ALL STOP TIME OUT------ 11::26 Final Timeout: patient, procedure, and site verified with staff and physician. All members of the team are in agreement. 11::29 Right groin site verified by team. 11::33 Fire Safety Assessment: A--An alcohol-based skin anteseptic being used preoperatively., C--Open oxygen or nitrous oxide is being used., D--An ESU, laser, or fiber-optic light is being used. 11:27:36 Physical assessment completed. ASA score P 2 - A patient with mild systemic disease as per Richard Logan MD. 11:29:03 Fentanyl 50 mcg I.V. was administered by Joe Avendano RN; for sedation; Verbal order read back and verified. 11::58 Versed 1 mg I.V. was administered by Joe Avendano RN; for sedation; Verbal order read back and verified. 11:33:59 Procedure started. 11:34:02 Local anesthetic to right femoral artery with Lidocaine 2% by Richard Logan MD.INITIAL ACCESS ONLY 11:36:01 A 5 Fr sheath was inserted into the Right Femoral artery 11:36:04 Zero performed for pressure channel P1 11:36:07 Zero performed for pressure channel P1 11:36:09 Zero performed for pressure channel P1 11:36:11 Zero performed for pressure channel P1 11:36:14 Zero performed for pressure channel P1 11:36:26 Versed 1 mg I.V. was administered by Joe Avendano RN; for sedation; Verbal order read back and verified. 11:36:26 A MULTIPACK Pigtail 5 Fr catheter was advanced over the wire and used for Procedure. 11:36:29 Fentanyl 50 mcg I.V. was administered by Joe Avendano RN; for sedation; Verbal order read back and verified. 11:37:34 Catheter removed, unable to cross valve. 11:37:40 A MULTIPACK JL 4.0 5Fr catheter was advanced over the wire and used for Procedure. 11:38:27 LCA angiography performed. 11:38:30 Catheter removed. 11:38:39 A MULTIPACK 3DRC 5Fr catheter was advanced over the wire and used for Procedure. 11:39:33 DE LEON to LAD angiography performed. 11:39:36 Catheter removed. 11:39:41 A DIAGNOSTIC AR2 MOD 5 Fr catheter ([id number]) was advanced over the wire and used for Procedure. 11:40:34 SVG to RPDA angiography performed. 11:40:57 RCA angiography performed. 11:41:04 ACCDominant side:Right 11:42:04 SVG to Circ angiography performed. 11:43:18 Catheter removed. 11:43:24 Use device set DESMOND PCI 11:43:26 SHEATH 6FR [place] (YBC174) opened to sterile field. 11:43:40 INFLATOR Merit BasixCompak (KA6894) opened to sterile field. 11:43:53 GUIDE 6FR AR 2.0 SH catheter ([id number]) opened to sterile field. 11:44:12 Sheath upsized to a 6 Fr Short. 11:44:21 6 Fr AR 2 SH guide catheter was inserted over the wire 11:44:57 Heparin Bolus 4000 units I.V. was administered by Joe Avendano RN; for anticoagulation; verified with dr logan Verbal order read back and verified. 11:45:01 Pre PCI Site: Vein Graft OM1 has 90% stenosis. 11:45:03 ACC Pre-intervention OSMAN Flow is 3. 11:45:15 MINAMO wire advanced. 11:45:45 NO COST MINAMO wire opened to the field. 11:46:50 Wire advanced across lesion. 11:47:55 Place stent Inflation Number: 1 A MARK RX 2.0 x 12 stent ([id number]) was prepped and advanced across the Aorta Left -> 1st Ob Flower 90. The stent was deployed at 13 KATHY for 0:10 (min:sec) 0. 11:48:36 Stent catheter was removed intact over wire. 11:48:37 Wire removed. 11:48:37 Guide catheter removed. 11:48:40 ACC Post-intervention OSMAN Flow is 3. 11:48:46 Post PCI Site: Vein Graft OM1 has 0% stenosis. 11:48:49 EXOSEAL 6Fr (EX600) opened to sterile field. 11:49:00 Sheath removed intact; hemostasis achieved with Exoseal to the Right Femoral artery. 11:49:02 Procedure ended.(Physican Out) 11:49:15 Fluoroscopy time 05.60 minutes. 11:49:26 Fluoroscopy dose: 793 mGy 11:49:26 Flurop Dose total: 793 11:49:32 Dose Area Product 97539 mGy/cm. 11:49:39 Contrast amount:Isovue 370 97ml. 11:49:41 Maximum allowable dose exceeded? No. 11:49:43 Sharps counted by scrub and verified by R.N. 11:49:45 Insertion/operative site no bleeding no hematoma. 11:49:54 Post-op/insertion site Right Femoral artery dressed using a 4 x 4 and Tegaderm. 11:49:55 Post Procedure Pulses reassessed and unchanged 11:49:57 Post-procedure physical assessment completed. ASA score P 2 - A patient with mild systemic disease as per Richard Logan MD. 11:50:01 Post procedure rhythm: unchanged. 11:50:03 Estimated blood loss: 10 ml 11:50:55 Post procedure instruction explained to patient.Patient verbalizes understanding. 11:50:56 Patient needs reinforcement of post procedure teaching. 11:52:58 Procedure and supply charges have been captured, reviewed, submitted and are correct. 11:53:01 Procedure Complication : No complications 11:53:25 ACT drawn and resulted at 237 seconds. (normal therapeutic range 180-240 seconds). 11:53:40 [facility] Findings: MVD- PCI performed (see procedure note) 11:55:36 Vital chart was stopped 11:55:37 Operative report dictated upon procedure completion. 11:55:38 See physician's report for complete and final results. 11:55:39 Report given to Pre/Post Procedure Room. 11:55:41 Patient transfered to Pre/Post Procedure Room with Stretcher. 11:55:44 Procedure ended. 11:55:44 Full Disclosure recording stopped 11:58:16 End room use (Document Last) Intervention Summary Intervention Notes Time ActionType Lesion and Equipment Used Action# Pressure Duration Attributes 11:47:55 Place stent Aorta Left MARK RX 2.0 x 1 13 00:10 -> 1st Ob 12 stent Flower ([id number]) Device Usage Item Name Manufacture Quantity Catalog Hospital Part Current [facility] Lot# / Number Charge Number Stock Stock Serial# Code Tegaderm 4 x 4 3M 1 1626W [id number] [id number] [id number] 5 (1626W) ACIST Manifold Acist 1 44078 586885 799782 879466 5 (60961) Medical Systems Inc ACIST Hand Acist 1 01248 740608 502106 130919 5 Control Medical (23314) Systems Inc ACIST Syringe Acist 1 14630 826756 304709 044231 20 (05254) Medical Systems Inc Bag Decanter Microtek 1 2001S 645913 22648 322259 5 (2002S) Medical Inc. Medline Cath Medline 1 [id number] 532452 93284 941839 5 Pack ([id number]) DIAGNOSTIC Cardinal 1 HM9129 732416 82743 006114 30 Multipack 5Fr Health catheter set ([id number]) SHEATH 5FR Terumo 1 NFB713 513305 335022 679285 5 Lincoln (CZS065) EMERALD Guide Cardinal 1 502-455 921878 956827 839371 5 Wire (502-455) Health MULTIPACK Cardinal 1 394609 5 Pigtail 5 Fr Health catheter MULTIPACK JL Cardinal 1 037795 5 4.0 5Fr Health catheter MULTIPACK 3DRC Cardinal 1 577145 5 5Fr catheter Health DIAGNOSTIC AR2 Cardinal 1 [id number] 064364 213179 183909 20 MOD 5 Fr Health catheter ([id number]) SHEATH 6FR Terumo 1 KQX744 110733 729090 304643 40 Lincoln (KTJ433) INFLATOR Merit Merit 1 YV4072 730750 906209 467371 15 [facility] Medical (BS7911) GUIDE 6FR AR Medtronic 1 [id number] 119501 43131 055383 1 2.0 SH catheter ([id number]) MARK RX 2.0 x Medtronic 1 [id number] 068224 1012485 927994 5 [id number] 12 stent ([id number]) EXOSEAL 6Fr Cardinal 1 EX600 638771 442027 859804 10 (EX600) Health Signature Audit [place] Stage Time Signature Unsigned Intra-Procedure 10/29/2019 Musa Mcmullen 11:56:56 AM RT(R) Intra-Procedure 10/29/2019 Joe Avendano RN 11:57:28 AM Intra-Procedure 10/29/2019 Richard Logan 11:58:36 AM Signatures Performing Physician : Signature : Richard Logan MD Date : Time : Monitor : Musa Mcmullen RT Signature : Date : Time : Nurse : Joe Avendano RN Signature : Date : Time : [facility] [address] [place] [address]
[~2019-10-29 08:46] MED LIST changes: +MECLIZINE HCL25 MG PO; +MEDROL DOSE PACK4 MG PO
[2019-10-29] MEDS ORDERED: NORVASC5 MG PO (09:07)
[2019-10-29] MEDS ORDERED: TOPROL XL50 MG PO (09:08)
[2019-10-29] MEDS ORDERED: KLOR-CON M2020 MEQ PO (09:09)
[2019-10-29 09:34] VITALS: BP 130/61; Ht 170.2 cm; Wt 77.7 kg
[2019-10-29 09:52] LABS: BASOPHILS 0.2 % (0-2); EOSINOPHILS 8.7 % (0-7); HEMATOCRIT 36.8 % (42.0-54.0); HEMOGLOBIN 12.5 g/dL (13.5-17.5); IMMATURE GRANULOCYTES 0.7 % (0-5); LYMPHOCYTES 10.6 % (15-50); MCH 30.6 pg (26.0-34.0); MEAN PLATELET VOLUME 9.5 fL (7.4-10.4); MONOCYTES 16.1 % (2-11); NEUTROPHILS 63.7 % (40-80); RBC 4.09 10x6/uL (4.20-6.10); RDW 14.4 % (11.5-14.5); WBC 8.3 10x3/uL (4.8-10.8)
[2019-10-29 09:58] LABS: PLATELET COUNT 400 10x3/uL (130-400)
[2019-10-29 10:45] LABS: ANION GAP 12.7 mmol/L (8-16); CALCIUM 9.2 mg/dL (8.5-10.1); CARBON DIOXIDE 25.5 mmol/L (21.0-32.0); CHOL - HDL RATIO 3.5 ratio (2.3-4.9); CREATININE - SERUM 1.3 mg/dL (0.6-1.3); LDL-HDL RATIO 2.3 ratio (1.5-3.5); POTASSIUM - SERUM 4.2 mmol/L (3.5-5.1)
--- NOTE | 2019-10-29 12:06 | NUR ---
PT ARRIVED BY STRETCHER. PLACED ON MONITORS. ASSESSMENT COMPLETED. VSS. FAMILY AT BEDSIDE.
--- NOTE | 2019-10-29 12:21 | NUR ---
RIGHT GROIN DRESSING C/D/I. NO S/S OF HEMATOMA NOTED. CALL LIGHT WITHIN REACH. PT DENIES NAUSEA/PAIN AT THIS TIME. TOLERATING SIPS OF WATER.
--- NOTE | 2019-10-29 12:50 | NUR ---
RIGHT GROIN DRESSING C/D/I. NO S/S OF HEMATOMA NOTED. CALL LIGHT WITHIN REACH. FAMILY AT BEDSIDE. VSS. NO NEEDS AT THIS TIME. TOLERATING SIPS OF WATER.
--- NOTE | 2019-10-29 13:05 | NUR ---
R GROIN CDI, SOFT. NO BLEEDING OR HEMATOMA. AT BEDSIDE.
--- NOTE | 2019-10-29 13:35 | NUR ---
R GROIN CDI, SOFT. NO BLEEDING OR HEMATOMA. HR 62, BP 117/55.
--- NOTE | 2019-10-29 14:05 | NUR ---
R GROIN CDI AND SOFT, NO BLEEDING OR HEMATOMA. REQ URINAL. PROVIDED. ASSISTING PT AT HIS REQUEST.
--- NOTE | 2019-10-29 14:23 | NUR ---
VOIDED 200CC CLEAR YELLOW URINE. HOB RAISED, SANDWICH PROVIDED.
--- NOTE | 2019-10-29 15:04 | NUR ---
R GROIN CDI, NO BLEEDING OR HEMATOMA.
--- NOTE | 2019-10-29 15:18 | NUR ---
MONITORING DISCONTNUED. IV DC, TIP INTACT. ASSISTING PT TO DRESS.
--- NOTE | 2019-10-29 15:45 | NUR ---
DISCHARGE INSTRUCTIONS REVIEWED, PT AND VERBALIZE UNDERSTANDING. DC HOME VIA PRIVATE CAR W .
== END 2019-10-29 15:45 | disposition home or self-care (01) ==
LOC: D.CATH 08:46
PROVIDERS: ATTEND Internal Medicine Interventional Cardiology
DX: I25.110 Atherosclerotic heart disease of native coronary artery with unstable angina pectoris (principal); I10 Essential (primary) hypertension; E78.5 Hyperlipidemia, unspecified; R06.09 Other forms of dyspnea
CPT/HCPCS: 93459; C9604

== ENCOUNTER 2019-10-30 06:07 | Emergency (ER) | payer MEDICARE ==
[~2019-10-30] VITALS: Ht 170.2 cm; Wt 90.9 kg
[~2019-10-30 06:07] MED LIST changes: +KLOR-CON M2020 MEQ PO; +NORVASC5 MG PO; +TOPROL XL50 MG PO
[2019-10-30 06:13] VITALS: Ht 170.2 cm; Wt 90.9 kg
[2019-10-30 07:01] VITALS: BP 125/89
== END 2019-10-30 07:09 | disposition home or self-care (01) ==
LOC: D.ER 06:07
DX: R33.9 Retention of urine, unspecified (principal); I10 Essential (primary) hypertension; I20.9 Angina pectoris, unspecified; Z95.1 Presence of aortocoronary bypass graft; E78.5 Hyperlipidemia, unspecified